=== PATIENT | female | born 1985 | race Caucasian/White ===

== ENCOUNTER → 2016-10-28 | Outpatient (CLI) | payer BC ==
[~2016-10-28] VITALS: Ht 165.1 cm; Wt 116.3 kg
[~2016-10-28] MED LIST: ENDOCET 5-3251 EACH PO; IBUPROFEN800 MG PO; IRON325 M1 PO; LEVO-T112 MCG PO; SYNTHROID75 MCG PO; VITAMIN D50000 UNI4 PO
[2016-10-28 07:35] VITALS: BP 106/59
== END | disposition home or self-care (01) ==
LOC: IVINF 07:27
DX: O36.0990 Maternal care for other rhesus isoimmunization, unspecified trimester, not applicable or unspecified (principal); Z3A.00 Weeks of gestation of pregnancy not specified
CPT/HCPCS: 96372; J2790

== ENCOUNTER 2017-01-14 07:24 | Inpatient (IN) | payer BC ==
[~2017-01-14] VITALS: Ht 165.1 cm; Wt 118.8 kg
[2017-01-14 09:13] VITALS: BP 101/55
[2017-01-14 09:44] LABS: BASOPHIL COUNT 0.1 K/uL (0-0.1); EOSINOPHIL (%) 0.6 % (0-5); EOSINOPHIL COUNT 0.1 K/uL (0-0.3); HEMATOCRIT 26.4 % (36.0-46.0); IMMATURE GRANULOCYTE (%) 0.9 % (0.0-0.7); IMMATURE GRANULOCYTE COUNT 0.1 K/uL; INSTRUMENT ABS NEUTROPHIL CT 8.4 K/uL; LYMPHOCYTE COUNT 2.1 K/uL (1.0-2.8); MCH 26.2 PG (29.0-34.0); MCHC 32.2 G/DL (30.0-36.0); MCV 81.5 FL (83-99); MEAN PLAT.VOLUME 11.9 uM^3 (9.5-12.4); MONOCYTE (%) 7.2 % (3-12); MONOCYTE COUNT 0.8 K/uL (0-0.8); NEUTROPHIL COUNT 8.4 K/uL (1.8-6.4); PLATELET COUNT 150 K/uL (156-360); RBC DIS.WIDTH-CV 13.5 % (11.8-14.6); RBC DIS.WIDTH-SD 40.6 % (39-53); RED BLOOD COUNT 3.24 M/uL (3.80-5.20); WHITE BLOOD COUNT 11.5 K/uL (4.1-10.2)
[2017-01-14] MEDS ORDERED: IBUPROFEN800 MG PO (11:09)
[2017-01-14] MEDS ORDERED: ENDOCET 5-3251 EACH PO (11:09)
[2017-01-14 13:15] VITALS: BP 100/55
[2017-01-14 14:18] VITALS: BP 103/57
[2017-01-14 18:32] VITALS: BP 109/62
[2017-01-14 20:07] VITALS: BP 95/54
[2017-01-14 22:50] VITALS: BP 100/51
[2017-01-15 03:17] VITALS: BP 88/65
[2017-01-15 07:06] LABS: EOSINOPHIL (%) 0.5 % (0-5); EOSINOPHIL COUNT 0.1 K/uL (0-0.3); HEMATOCRIT 24.5 % (36.0-46.0); IMMATURE GRANULOCYTE (%) 0.6 % (0.0-0.7); IMMATURE GRANULOCYTE COUNT 0.1 K/uL; INSTRUMENT ABS NEUTROPHIL CT 9.4 K/uL; LYMPHOCYTE COUNT 2.6 K/uL (1.0-2.8); MCH 25.6 PG (29.0-34.0); MCV 82.5 FL (83-99); MEAN PLAT.VOLUME 11.4 uM^3 (9.5-12.4); MONOCYTE (%) 8.7 % (3-12); MONOCYTE COUNT 1.2 K/uL (0-0.8); NEUTROPHIL (%) 70.3 % (45-76); NEUTROPHIL COUNT 9.4 K/uL (1.8-6.4); PLATELET COUNT 152 K/uL (156-360); RBC DIS.WIDTH-CV 13.7 % (11.8-14.6); RBC DIS.WIDTH-SD 41.1 % (39-53); RED BLOOD COUNT 2.97 M/uL (3.80-5.20); WHITE BLOOD COUNT 13.4 K/uL (4.1-10.2)
[2017-01-15 07:34] VITALS: BP 98/55
[2017-01-15 10:59] VITALS: BP 115/57
[2017-01-15 15:11] VITALS: BP 110/53
[2017-01-15 19:21] VITALS: BP 110/69
[2017-01-15 22:45] VITALS: BP 109/59
[2017-01-16 03:18] VITALS: BP 93/51
[2017-01-16 07:15] VITALS: BP 105/57
[2017-01-16 23:00] VITALS: BP 95/50
[2017-01-17 22:46] VITALS: BP 119/67
[2017-01-18 07:52] VITALS: BP 102/61
[2017-01-18 15:05] VITALS: BP 114/65
== END 2017-01-18 20:30 | disposition home or self-care (01) | DRG 765 ==
LOC: 2WEST 07:24 → 2SOUTH 10:06 → 2WEST 18:02
PROVIDERS: Nurse Practitioner; Obstetrics & Gynecology
DX: O34.211 Maternal care for low transverse scar from previous cesarean delivery (principal); O26.893 Other specified pregnancy related conditions, third trimester; O99.214 Obesity complicating childbirth; O99.284 Endocrine, nutritional and metabolic diseases complicating childbirth; E66.9 Obesity, unspecified; N85.8 Other specified noninflammatory disorders of uterus; K21.9 Gastro-esophageal reflux disease without esophagitis; E03.9 Hypothyroidism, unspecified; F32.9 Major depressive disorder, single episode, unspecified; O99.344 Other mental disorders complicating childbirth; O73.0 Retained placenta without hemorrhage; O99.613 Diseases of the digestive system complicating pregnancy, third trimester; O99.844 Bariatric surgery status complicating childbirth; Z67.41 Type O blood, Rh negative; Z68.41 Body mass index [BMI] 40.0-44.9, adult; Z37.0 Single live birth; Z3A.39 39 weeks gestation of pregnancy; Z30.2 Encounter for sterilization
CPT/HCPCS: 36415; 85025; 86870; 86900; 86901; 86905; 86920; 86999; 87081; 87086; 88302; J0690; J1100; J1200; J2274; J2405; J3010; J7120